=== PATIENT | female | born 1980 | race Caucasian/White ===

== ENCOUNTER 2018-09-19 14:51 | Day surgery (SDC) | payer OTHER ==
[2018-09-19] VITALS (14 sets, daily range): BP systolic 91–109; BP diastolic 59–76; PULSE 64–79; RESP 12–18; Ht 157.5 cm; Wt 85.1 kg
[~2018-09-19] VITALS: Ht 157.5 cm; Wt 85.1 kg
[~2018-09-19 14:51] MED LIST: FER325 PO; Lanolin TOP; PREN-29 PO
--- NOTE | 2018-09-19 16:24 | PREAC ---
Date/Time of Note Date/Time of Note DATE: 09/19/18 TIME: 16:22 Anesthesia Eval and Record Evaluation Time Pre-Procedure Interview DATE: 09/19/18 TIME: 16:22 Age 38 Sex female NPO: 8 hrs Preoperative diagnosis right thumb retinacular ganglion cyst, right trigger thumb Planned procedure excision of right thumb retinacular ganglion cyst, right trigger thumb release Past Medical History Past Medical History: Includes GI: Obesity Surgery & Anesthesia Issues No known issue Meds Anticoagulation: No Beta Rupa within 24 hr: No Reason Beta Rupa not given: Pt. not on B-Rupa Active Scripts [Lanolin] 1 APPLIC OINT No Conflict Check, 1 APPLIC TOP BEDSIDE MEDICATION PRN for BEDSIDE FOR IRON TO NIPPLES, #1 5 Refills Prov:LAW HELMS MD 03/30/14 Reported Medications Ferrous Sulfate* (Ferrous Sulfate*) 325 Mg Tabec, 325 MG PO BID, TAB 03/27/14 Vit-Fe Fumarate-FA* (Ayush Tablet*) 1 Tab Tablet, 1 TAB PO DAILY, TAB 03/27/14 Current Medications Lactated Ringer's 1,000 ml @ 30 mls/hr Q24H IV ; Start 09/19/18 at 16:30 Meds reviewed: Yes Allergies Coded Allergies: No Known Allergies (Verified Allergy, Unknown, 03/27/14) Uncoded Allergies: NKDA (Adverse Reaction, Unknown, 03/27/14) Allergies Reviewed: Yes Labs/Studies Labs Reviewed: Reviewed by anesthesiologist test: Negative Pre-procedure Exam Airway: Adequate mouth opening, Adequate thyromental dist Mallampati: Mallampati II Teeth: Normal Lung: Normal Heart: Normal ASA Physical Status ASA physical status: 2 Emergency: None Planned Anesthetic General/MAC: LMA Planned Pain Management Parenteral pain med, Local by surgeon Pre-operative Attestations Prior to commencing anesthesia and surgery, the patient was re-evaluated, there was verification of: *The patient's identity *The results of appropriate recent lab work and preoperative vital signs *The above evaluation not changing prior to induction *Anesthetic plan, risk benefits, alternative and complications discussed with patient/family; questions answered; patient/family understands, accepts and wishes to proceed. PRICILLA HAYS MD Sep 19, 2018 16:24
[2018-09-19] MEDS ORDERED: LACTATED RINGER'S 1,000 ML IV SCH (16:30)
[2018-09-19] MEDS ORDERED: DIPHENHYDRAMINE 50 MG INJ IV PRN (17:30)
[2018-09-19] MEDS ORDERED: ONDANSETRON 4 MG INJ IV PRN (17:30)
[2018-09-19] MEDS ORDERED: HYDROmorphONE 1 MG/5 ML IV SYRINGE IV PRN ×3 (17:30)
[2018-09-19] MEDS ORDERED: FENTAnyl 50 MCG/ML VIAL IV PRN (17:30)
[2018-09-19] MEDS ORDERED: PROCHLORPERAZINE 10 MG INJ IV PRN (17:30)
[2018-09-19] MEDS ORDERED: OXYCODONE/ACETAMINOPHEN (5/325) TAB PO PRN (17:30)
[2018-09-19] MEDS ORDERED: MEPERIDINE 25 MG INJ IV PRN (17:30)
--- NOTE | 2018-09-19 18:36 | HPN ---
Date/Time of Note Date/Time of Note DATE: 09/19/18 TIME: 18:36 Interval H&P Admission Note Pt. seen H&P reviewed: No system changes KELVIN CEBALLOS Sep 19, 2018 18:36
[2018-09-19] MEDS ORDERED: FENTAnyl 50 MCG/ML VIAL ONE (19:18)
[2018-09-19] MEDS ORDERED: MIDAZOLAM 1 MG/ML 2 ML INJ ONE (19:18)
[2018-09-19] MEDS ORDERED: CEFAZOLIN 1 GM INJ ONE (19:18)
[2018-09-19] MEDS ORDERED: PROPOFOL 20 ML ONE (19:18)
[2018-09-19] MEDS ORDERED: BUPIVACAINE 0.5% (SDV) 30 ML INJ ONE (19:37)
[2018-09-19] MEDS ORDERED: ONDANSETRON 4 MG INJ ONE (20:02)
[2018-09-19] MEDS ORDERED: DEXAMETHASONE 4 MG/ML 5 ML INJ ONE (20:02)
[2018-09-19] MEDS ORDERED: METOCLOPRAMIDE 10 MG INJ ONE (20:02)
[2018-09-19] MEDS ORDERED: KETOROLAC 30 MG INJ ONE (20:02)
--- NOTE | 2018-09-19 20:16 | OPPN ---
Date/Time of Note Date/Time of Note DATE: 09/19/18 TIME: 20:15 Operative Report Preoperative Diagnosis right trigger thumb right thumb retinacular cyst Postoperative Diagnosis right trigger thumb right thumb retinacular cyst right thumb flexor tendon adhesions Operation/Procedure Performed right trigger thumb release right thumb retinacular cyst excision right thumb flexor tendon tenolysis Surgeon see signature line or assistant none Anesthesia: general Estimated blood loss: 0 - 10 ml's Transfusion Required none Specimen none Grafts/Implants none Complications none KELVIN CEBALLOS Sep 19, 2018 20:16
--- NOTE | 2018-09-19 20:17 | PAC ---
Date/Time of Note Date/Time of Note DATE: 09/19/18 TIME: 20:17 Post-Anesthesia Notes Post-Anesthesia Note Last documented vital signs Vital Signs Date Temp Pulse Resp B/P (MAP) Pulse Ox O2 O2 Flow FiO2 Time Delivery Rate 09/19/18 98.5 20:16 09/19/18 79 18 101/62 99 Room Air 16:19 (75) Activity: WNL Respiratory function: WNL Cardiovascular function: WNL Mental status: Baseline Pain reasonably controlled: Yes Hydration appropriate: Yes Nausea/Vomiting absent: Yes DIA MARIN MD Sep 19, 2018 20:17
--- NOTE | 2018-09-20 01:37 | OPR ---
DATE OF OPERATION: 09/19/2018 SURGEON: Kelvin Gracia MD ANESTHESIA: General. PREOPERATIVE DIAGNOSES: 1. Right trigger thumb. 2. Right thumb retinacular/ganglion cyst. 3. Right thumb flexor pollicis longus tendon adhesions. POSTOPERATIVE DIAGNOSES: 1. Right trigger thumb. 2. Right thumb retinacular/ganglion cyst. 3. Right thumb flexor pollicis longus tendon adhesions. PROCEDURE: 1. Right trigger thumb release. 2. Excision of right thumb retinacular/ganglion cyst. 3. Right thumb FPL tendon tenolysis. OPERATIVE FINDINGS: Retinacular/ganglion cyst, right thumb, with stenosing tenosynovitis at the [facility] thumb flexor sheath A1 macho. INDICATION FOR PROCEDURE: A 38-year-old female with longstanding right thumb pain who failed conserv ative measures and elected to proceed with surgical intervention, understanding the risks and benefit s. DESCRIPTION OF PROCEDURE: The patient was seen in the preoperative area and all further questions we re answered. Again, she gave informed consent, understanding the risks and benefits. She was taken to operative suite and placed in supine position. Ancef 2 grams IV given and the patient was placed under general anesthesia. Tourniquet placed in the right upper extremity and right upper extremity w as prepped with ChloraPrep stick and draped in usual sterile fashion. Esmarch bandage was used to ex sanguinate the extremity and tourniquet inflated to 250 mmHg. A transverse incision at the thumb MP crease was utilized with sharp dissection carried down through skin and subcutaneous tissue. Care wa s taken not to go too deep to preserve the digital nerves. Tenotomy scissor was used to divide the s oft tissues overlying the flexor sheath. A retinacular/ganglion cyst was identified at the radial as pect of the flexor sheath and was excised using 15 blade knife and Adson forceps. After excision of the cyst attention was turned to the trigger thumb release. A longitudinal incision was made in the flexor sheath A1 macho using a 15 blade knife. The tendon was decompressed after trigger release. The tendon was inspected and there were adhesions present which were released using tenotomy scissor and Ragnell retractor. After the tenolysis was complete of the flexor pollicis longus tendon, the wo und was copiously irrigated. Skin closed with 5-0 nylon. Xeroform placed in the wound followed by s terile gauze, Webril and a bias bandage. Tourniquet deflated after 9 minutes. The patient was awake payam from anesthesia. She was taken the postoperative suite in stable condition, tolerated the proced ure well without complication. SPECIMENS: None. ESTIMATED BLOOD LOSS: 5 mL COUNTS: Sponge, instrument, needle counts correct. TOURNIQUET TIME: 9 minutes. CONDITION ON DISCHARGE: Stable. The patient was given a nonrefillable 5-day prescription for pain medication after surgery today. Dictated By: KELVIN HEREDIA/MANISH Conf#: [id number] DID#: [id number]
== END 2018-09-19 21:34 | disposition home or self-care (01) ==
LOC: SDS 14:51
PROVIDERS: ATTEND Orthopaedic Surgery Hand Surgery
DX: M65.311 Trigger thumb, right thumb (principal); M67.441 Ganglion, right hand
CPT/HCPCS: 26160; 84703; J0690; J1100; J1885; J2250; J2405; J2765; J3010; Z7512; Z7610